=== PATIENT | female | born 1975 | race Caucasian/White ===

== ENCOUNTER 2017-08-14 21:48 | Emergency (ER) | payer SELFPAY ==
--- NOTE | 2017-08-14 22:26 | EDPHYS ---
Physician Documentation [facility] Name: Darcy Aguilar Age: 42 yrs Sex: Female : 1975 Arrival Date: 08/14/2017 Time: 21:51 Bed 16 Private MD: ED Physician Eugenio Naqvi HPI: 08/14 22:15 This 42 yrs old Female presents to ER via Ambulatory with complaints of Eye jr8 Pain. 22:15 The patient is experiencing redness. Onset: The symptoms/episode began/occurred jr8 acutely, today. Duration: the symptoms are continuous. Aggravated by nothing. Alleviated by nothing. Associated signs and symptoms: Pertinent positives: None. Patient does not utilize any form of vision correction. Severity of symptoms: At their worst the symptoms were mild in the emergency department the symptoms are unchanged. The patient has not experienced similar symptoms in the past. The patient has not recently seen a physician. 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 - Social history:: Smoking status: Patient/guardian denies using tobacco. - Ebola Screening: : No symptoms or risks identified at this time. ROS: 22:15 ENT: Negative for injury, pain, and discharge, Neck: Negative for injury, pain, and jr8 swelling, Cardiovascular: Negative for chest pain, palpitations, and edema, Respiratory: Negative for shortness of breath, cough, wheezing, and pleuritic chest pain, Abdomen/GI: Negative for abdominal pain, nausea, vomiting, diarrhea, and constipation, Back: Negative for injury and pain, MS/Extremity: Negative for injury and deformity, Skin: Negative for injury, rash, and discoloration, Neuro: Negative for headache, weakness, numbness, tingling, and seizure. 22:15 Eyes: Positive for redness. Exam: 22:15 Head/Face: Normocephalic, atraumatic. ENT: Nares patent. No nasal discharge, no jr8 septal abnormalities noted. Tympanic membranes are normal and external auditory canals are clear. Oropharynx with no redness, swelling, or masses, exudates, or evidence of obstruction, uvula midline. Mucous membranes moist. Neck: Trachea midline, no thyromegaly or masses palpated, and no cervical lymphadenopathy. Supple, full range of motion without nuchal rigidity, or vertebral point tenderness. No Meningismus. Cardiovascular: Regular rate and rhythm with a normal S1 and S2. No gallops, murmurs, or rubs. Normal PMI, no JVD. No pulse deficits. Respiratory: Lungs have equal breath sounds bilaterally, clear to auscultation and percussion. No rales, rhonchi or wheezes noted. No increased work of breathing, no retractions or nasal flaring. Abdomen/GI: Soft, non-tender, with normal bowel sounds. No distension or tympany. No guarding or rebound. No evidence of tenderness throughout. Back: No spinal tenderness. No costovertebral tenderness. Full range of motion. Skin: Warm, dry with normal turgor. Normal color with no rashes, no lesions, and no evidence of cellulitis. MS/ Extremity: Pulses equal, no cyanosis. Neurovascular intact. Full, normal range of motion. Neuro: Awake and alert, GCS 15, oriented to person, place, time, and situation. Cranial nerves II-XII grossly intact. Motor strength 5/5 in all extremities. Sensory grossly intact. Cerebellar exam normal. Normal gait. 22:15 Eyes: Periorbital structures: appear normal, Pupils: equal, round, and reactive to light and accomodation, Extraocular movements: intact throughout, Conjunctiva: subconjunctival hemorrhage(s), seen in the right eye, at 1 o'clock, Corneas: are normal, Sclera: no appreciated abnormality, Anterior chamber: normal, Lids and lashes: appear normal, funduscopic exam reveals no obvious abnormalities. Vital Signs: 22:05 BP 138 / 96; Pulse 66; Resp 18; Temp 98.7(O); Pulse Ox 98% on R/A; Weight 81.65 kg; tl2 Height 5 ft. 1 in. (154.94 cm); Pain 0/10; 22:05 Body Mass Index 34.01 (81.65 kg, 154.94 cm) tl2 Visual Acuity: 22:18 ; NA rk2 MDM: 21:58 Patient medically screened. [facility] 22:15 Data reviewed: vital signs, nurses notes, and as a result, I will discharge patient. jr8 Data interpreted: Pulse oximetry: on room air is 98 %. Interpretation: normal. Counseling: I had a detailed discussion with the patient and/or guardian regarding: the historical points, exam findings, and any diagnostic results supporting the discharge/admit diagnosis, the need for outpatient follow up, an opthalmologist, to return to the emergency department if symptoms worsen or persist or if there are any questions or concerns that arise at home. Administered Medications: No medications were administered Disposition: 23:41 Co-signature as Attending Physician, Eugenio Naqvi MD. rn Disposition: 08/14/17 22:25 Discharged to Home. Impression: Subconjunctival Hemorrhage . - Condition is Stable. - Discharge Instructions: Subconjunctival Hemorrhage. - Medication Reconciliation Form, Thank You Letter, Antibiotic Education, Prescription Opioid Use, Work release form form. - Follow up: Private Physician; When: 2 - 3 days; Reason: Recheck today's complaints, Continuance of care, Re-evaluation by your physician. - Problem is new. - Symptoms are unchanged. Signatures: Eugenio Naqvi MD MD rn Roszak, Josh, PA PA jr8 Katie Mireles RN RN tl2 Dilma Ayala RN RN rk2 Corrections: (The following items were deleted from the chart) 22:36 22:25 08/14/2017 22:25 Discharged to Home. Impression: Subconjunctival Hemorrhage . rk2 Condition is Stable. Forms are Medication Reconciliation Form, Thank You Letter, Antibiotic Education, Prescription Opioid Use. Follow up: Private Physician; When: 2 - 3 days; Reason: Recheck today's complaints, Continuance of care, Re-evaluation by your physician. Problem is new. Symptoms are unchanged. jr8
--- NOTE | 2017-08-14 22:26 | ER ---
Nurse's Notes [facility] Name: Darcy Aguilar Age: 42 yrs Sex: Female : 1975 Arrival Date: 08/14/2017 Time: 21:51 Bed 16 Private MD: Diagnosis: Subconjunctival Hemorrhage Presentation: 08/14 22:03 Presenting complaint: Patient states: I woke up this morning with my right eye tl2 bloodshot, but my job sent me over here to get cleared to come back to work. Denies pain or vision problems. Redness noted in right eye. Transition of care: patient was not received from another setting of care. Mechanism of Injury: No Mechanism of Injury. The patient denies any loss of vision. Onset of symptoms was August 14, 2017. Risk Assessment: Do you want to hurt yourself or someone else? Patient reports no desire to harm self or others. Initial Sepsis Screen: Does the patient meet any 2 criteria? No. Patient's initial sepsis screen is negative. Does the patient have a suspected source of infection? No. Patient's initial sepsis screen is negative. Care prior to arrival: None. 22:03 Method Of Arrival: Ambulatory tl2 22:03 Acuity: CED 4 tl2 Triage Assessment: 22:05 General: Appears in no apparent distress. comfortable, Behavior is calm, cooperative, tl2 appropriate for age. Pain: Denies pain. EENT: Sclera/Cornea are reddened in outer aspect of conjuctiva of right eye and inner aspect of conjuctiva of right eye. 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 - Social history:: Smoking status: Patient/guardian denies using tobacco. - Ebola Screening: : No symptoms or risks identified at this time. Screenin:05 Abuse screen: Denies threats or abuse. Nutritional screening: No deficits noted. tl2 Tuberculosis screening: No symptoms or risk factors identified. Fall Risk None identified. Assessment: 22:06 EENT: Eyes redness noted in sclera. tl2 22:18 General: Appears in no apparent distress. well groomed, well developed, well nourished, rk2 Behavior is calm, cooperative. 22:18 Neuro: Level of Consciousness is alert, obeys commands, Oriented to person, place, rk2 time, situation. Respiratory: Airway is patent Respiratory effort is even, unlabored, Respiratory pattern is regular, symmetrical. EENT: Eyes Red noted in sclera. Derm: Skin is pink, warm \T\ dry. Vital Signs: 22:05 BP 138 / 96; Pulse 66; Resp 18; Temp 98.7(O); Pulse Ox 98% on R/A; Weight 81.65 kg; tl2 Height 5 ft. 1 in. (154.94 cm); Pain 0/10; 22:05 Body Mass Index 34.01 (81.65 kg, 154.94 cm) tl2 Visual Acuity: 22:18 ; NA rk2 ED Course: 21:51 Patient arrived in ED. ds1 21:58 Sundar Raymundo PA is PHCP. jr8 21:58 Eugenio Naqvi MD is Attending Physician. jr8 22:04 Triage completed. tl2 22:05 Arm band placed on right wrist. tl2 22:05 Patient has correct armband on for positive identification. Bed in low position. Call tl2 light in reach. Side rails up X 1. 22:24 Dilma Ayala, DEON is Primary Nurse. rk2 22:35 No provider procedures requiring assistance completed. rk2 22:35 Patient did not have IV access during this emergency room visit. rk2 Administered Medications: No medications were administered Outcome: 22:25 Discharge ordered by . jr8 22:36 Discharged to home ambulatory. rk2 22:36 Condition: good 22:36 Discharge instructions given to patient. 22:36 Patient left the ED. rk2 Signatures: Maria Teresa An ds1 Sundar Raymundo PA PA jr8 Katie Mireles RN RN tl2 Dilma Ayala RN RN rk2
[2017-08-14 22:45] VITALS: BP 138/96; TEMP 98.7; O2SAT 98
== END 2017-08-14 22:36 | disposition home or self-care (01) ==
LOC: ER 21:48
DX: H11.31 Conjunctival hemorrhage, right eye (principal)
CPT/HCPCS: 99282

== ENCOUNTER 2019-01-31 04:53 | Emergency (ER) | payer OTHER, SELFPAY ==
--- OUTSIDE RECORDS SUMMARY | 2019-01-31 04:56 | XMS REPORT ---
:1975 [facility] Address [address] [place] [address] Dr. Gardner [address] [place] [id number] Care Team Providers Name Role Phone Unavailable Unavailable Unavailable Problems This patient has no known problems. Allergies, Adverse Reactions, Alerts This patient has no known allergies or adverse reactions. Medications This patient has no known medications.
[2019-01-31] MEDS ORDERED: ONDANSETRON 4 MG/2 ML VIAL ONE (06:33)
[2019-01-31] MEDS ORDERED: MORPHINE 4 MG/ML SYR ONE (06:33)
[2019-01-31] MEDS ORDERED: NA CHLORIDE 0.9% 1,000 ML ONE (06:33)
[2019-01-31 06:37] LABS: Albumin 3.3 g/dL (3.4-5.0); Bilirubin Direct 0.1 mg/dL (0-0.2); Bilirubin Total 0.4 mg/dL (0.2-1.0); Potassium 4.1 mmol/L (3.5-5.1); Protein, Total 6.9 g/dL (6.4-8.2)
[2019-01-31 06:54] LABS: Absolute Lymphocytes (CBC) 1.7 K/uL (0.7-4.9); Basophils % 0.3 % (0-1.3); Hematocrit 36.9 % (36.0-45.0); Lymphocytes % 18.4 % (15.3-44.8); MPV 8.5 fL (7.6-11.3); RBC Red Blood Cell Count 4.06 M/uL (3.86-4.86)
[2019-01-31 07:08] LABS: Urine Bacteria 20-50 /HPF (<20); Urine Culture Reflex Order REFLEXED
--- NOTE | 2019-01-31 08:11 | RAD REPORT ---
EXAM DESCRIPTION: CTAbdomen Pelvis W Contrast - 01/31/2019 7:00 am CLINICAL HISTORY: Abdominal pain. ABD PAIN COMPARISON: CTSTONE PROTOCOL dated 11/16/2013; CT ABD PELVIS W CONTRAST dated 11/11/2010 TECHNIQUE: Biphasic CT imaging of the abdomen and pelvis was performed with 100 ml non-ionic IV cont rast. All CT scans are performed using dose optimization technique as appropriate and may include automated exposure control or mA/KV adjustment according to patient size. FINDINGS: The lung bases are clear. Cholecystectomy clips. The liver demonstrates an 11 mm lesion in the medial right lobe of the liver inferiorly, likely benig n but incompletely assessed. Spleen, pancreas, adrenal glands and right kidney are within normal limi ts. Left kidney demonstrates mild perinephric fat stranding with enhancement of the left-sided uroepi thelium. No bowel obstruction, free air, free fluid or abscess. Sigmoid diverticulosis coli without diverticul itis. The appendix is normal. No evidence of significant lymphadenopathy. No suspicious bony findings. Large pelvic mass compatible with an enlarged leiomyomatous uterus measu ring 12 x 10 cm. IMPRESSION: Evidence of ascending left-sided urinary tract infection is seen. Suggest correlation wi urinalysis. Significantly enlarged leiomyomatous uterus in the pelvis.
--- NOTE | 2019-01-31 08:27 | ER ---
Nurse's Notes [facility] Name: Darcy Aguilar Age: 43 yrs Sex: Female : 1975 Arrival Date: 01/31/2019 Time: 04:59 Bed 14 Private MD: Diagnosis: Urinary tract infection, site not specified Presentation: 01/31 05:11 Presenting complaint: Patient states: Pt reports nausea and abdominal pain that started ea four days ago. Pt reports she has been having nausea, feeling bloated and has been unable to eat. Pt reports she has been feeling pain with urination. Transition of care: patient was not received from another setting of care. Onset of symptoms was January 31, 2019. Risk Assessment: Do you want to hurt yourself or someone else? Patient reports no desire to harm self or others. Initial Sepsis Screen: Does the patient meet any 2 criteria? No. Patient's initial sepsis screen is negative. Does the patient have a suspected source of infection? No. Patient's initial sepsis screen is negative. Care prior to arrival: None. 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 - Social history:: Smoking status: Patient/guardian denies using tobacco. - Ebola Screening: : No symptoms or risks identified at this time. Screenin:17 Abuse screen: Denies threats or abuse. Nutritional screening: No deficits noted. ea Tuberculosis screening: No symptoms or risk factors identified. Fall Risk None identified. Assessment: 05:25 General: Appears in no apparent distress. Behavior is calm, cooperative, appropriate ea for age. Pain: Complains of pain in abdomen Quality of pain is described as "bloated". Neuro: Level of Consciousness is awake, alert, obeys commands, Oriented to person, place, time, situation. Cardiovascular: Patient's skin is warm and dry. Respiratory: Airway is patent Respiratory effort is even, unlabored, Respiratory pattern is regular, symmetrical. GI: Bowel sounds present X 4 quads. Abd is soft and non tender X 4 quads. Derm: Skin is pink, warm \\T\\ dry. 06:17 Reassessment: Patient and/or family updated on plan of care and expected duration. Pain ea level reassessed. Patient is alert, oriented x 3, equal unlabored respirations, skin warm/dry/pink. 07:00 Reassessment: Pt. is in radiology. rb1 07:30 General: Appears in no apparent distress. comfortable, Behavior is calm, cooperative. rb1 Pain: Complains of pain in abdomen Pain currently is 4 out of 10 on a pain scale. Neuro: Level of Consciousness is awake, alert, obeys commands, Oriented to person, place, time, situation. Cardiovascular: Capillary refill < 3 seconds is brisk in bilateral fingers. Respiratory: Airway is patent Respiratory effort is even, unlabored, Respiratory pattern is regular, symmetrical. GI: Bowel sounds present X 4 quads. : No signs and/or symptoms were reported regarding the genitourinary system. Derm: Skin is pink, warm \\T\\ dry. 08:30 Reassessment: Patient appears in no apparent distress at this time. No changes from rb1 previously documented assessment. 08:46 Reassessment: Discharge pending due to Medication administration. rb1 Vital Signs: 05:10 BP 138 / 73; Pulse 81; Resp 18; Temp 98.3; Pulse Ox 98% on R/A; Weight 86.18 kg; Height ea 5 ft. 1 in. (154.94 cm); 07:30 BP 121 / 73; Pulse 68; Resp 18; Pulse Ox 96% on R/A; Pain 4/10; rb1 08:30 BP 118 / 69; Pulse 66; Resp 17; Temp 98.1(O); Pulse Ox 96% on R/A; Pain 4/10; rb1 05:10 Body Mass Index 35.90 (86.18 kg, 154.94 cm) ea ED Course: 04:59 Patient arrived in ED. ds1 05:17 Triage completed. ea 05:17 Arm band placed on right wrist. Patient placed in an exam room, on a stretcher, on ea pulse oximetry. 05:23 Patient has correct armband on for positive identification. Bed in low position. Call ea light in reach. Side rails up X2. 05:51 Kristin Dunbar, RN is Primary Nurse. ea 06:05 Darron Chang NP is PHCP. pm1 06:05 Anival Jasmine MD is Attending Physician. pm1 06:30 Inserted saline lock: 22 gauge in right forearm, using aseptic technique. Blood oe collected. 07:01 CT Abd/Pelvis - IV Contrast Only In Process Unspecified. EDMS 08:59 No provider procedures requiring assistance completed. IV discontinued, intact, rb1 bleeding controlled, No redness/swelling at site. Pressure dressing applied. Administered Medications: 06:39 Drug: NS 0.9% 1000 ml Route: IV; Rate: 1000 ml; Site: right forearm; jd3 06:40 Drug: morphine 4 mg Route: IVP; Site: right forearm; jd3 07:30 Follow up: Response: No adverse reaction; Pain is decreased rb1 06:40 Drug: Zofran 4 mg Route: IVP; Site: right forearm; jd3 07:30 Follow up: Response: No adverse reaction rb1 08:42 Drug: Rocephin 1 grams Route: IV; Rate: calculated rate; Site: right forearm; rb1 09:01 Follow up: Response: No adverse reaction; IV Status: Completed infusion rb1 Outcome: 08:26 Discharge ordered by MD. pm1 08:59 Discharged to home ambulatory. rb1 08:59 Condition: stable 08:59 Discharge instructions given to patient, Instructed on discharge instructions, follow up and referral plans. medication usage, Demonstrated understanding of instructions, follow-up care, medications, Prescriptions given X 2. 09:01 Patient left the ED. rb1 Addendum: 02/03/2019 07:49 Addendum: Culture Results: Positive urine culture. No further action required. Bacteria i w sensitive to prescribed antibiotic. Signatures: Dispatcher [employer] [facility]ve Maria Teresa ds Iliana Michaels RN RN iw Barber, Rebecca, RN RN rb1 Darron Chang NP [employer] pm1 Arturo Tamayo Elena, RN RN ea Davies, Jonathon, RN RN jd3
--- NOTE | 2019-01-31 08:27 | EDPHYS ---
Physician Documentation [facility] Srinivasan Name: Darcy Aguilar Age: 43 yrs Sex: Female : 1975 Arrival Date: 01/31/2019 Time: 04:59 Bed 14 Private MD: ED Physician Anival Jasmine HPI: 01/31 07:16 This 43 yrs old Female presents to ER via Ambulatory with complaints of pm1 Abdominal Pain, Nausea. 07:16 The patient presents with abdominal pain in the upper abdomen. Onset: The pm1 symptoms/episode began/occurred 4 day(s) ago. The symptoms do not radiate. Associated signs and symptoms: Pertinent positives: nausea, burning with urination for the past 3-4 days. Not burning with each urination, Pertinent negatives: chest pain, diarrhea, fever, shortness of breath, vomiting. The symptoms are described as crampy and bloating sensation to upper abdomen. Pain initially started in the left flank area. Modifying factors: The symptoms are alleviated by nothing, the symptoms are aggravated by nothing. Severity of pain: in the emergency department the pain is unchanged. The patient has not recently seen a physician. 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 - Social history:: Smoking status: Patient/guardian denies using tobacco. - Ebola Screening: : No symptoms or risks identified at this time. ROS: 07:16 Constitutional: Negative for fever, chills, and weight loss, Eyes: Negative for injury, pm1 pain, redness, and discharge, ENT: Negative for injury, pain, and discharge, Neck: Negative for injury, pain, and swelling, Cardiovascular: Negative for chest pain, palpitations, and edema, Respiratory: Negative for shortness of breath, cough, wheezing, and pleuritic chest pain. 07:16 MS/Extremity: Negative for injury and deformity, Skin: Negative for injury, rash, and discoloration, Neuro: Negative for headache, weakness, numbness, tingling, and seizure. 07:16 Abdomen/GI: Positive for abdominal pain, nausea, Negative for vomiting, diarrhea, constipation. 07:16 Back: Positive for flank pain, on the left, Negative for decreased range of motion. 07:16 : Positive for flank pain, burning with urination. Exam: 07:16 Constitutional: This is a well developed, well nourished patient who is awake, alert, pm1 and in no acute distress. Head/Face: Normocephalic, atraumatic. Neck: Trachea midline, no thyromegaly or masses palpated, and no cervical lymphadenopathy. Supple, full range of motion without nuchal rigidity, or vertebral point tenderness. No Meningismus. Chest/axilla: Normal chest wall appearance and motion. Nontender with no deformity. No lesions are appreciated. Cardiovascular: Regular rate and rhythm with a normal S1 and S2. No gallops, murmurs, or rubs. Normal PMI, no JVD. No pulse deficits. Respiratory: Lungs have equal breath sounds bilaterally, clear to auscultation and percussion. No rales, rhonchi or wheezes noted. No increased work of breathing, no retractions or nasal flaring. Abdomen/GI: Soft, non-tender, with normal bowel sounds. No distension or tympany. No guarding or rebound. No evidence of tenderness throughout. Skin: Warm, dry with normal turgor. Normal color with no rashes, no lesions, and no evidence of cellulitis. MS/ Extremity: Pulses equal, no cyanosis. Neurovascular intact. Full, normal range of motion. 07:16 Back: pain, that is mild, of the left low back, normal spinal alignment noted, vertebral tenderness, is not appreciated. 07:16 Neuro: Orientation: is normal, Motor: is normal, moves all fours. Vital Signs: 05:10 BP 138 / 73; Pulse 81; Resp 18; Temp 98.3; Pulse Ox 98% on R/A; Weight 86.18 kg; Height ea 5 ft. 1 in. (154.94 cm); 07:30 BP 121 / 73; Pulse 68; Resp 18; Pulse Ox 96% on R/A; Pain 4/10; rb1 08:30 BP 118 / 69; Pulse 66; Resp 17; Temp 98.1(O); Pulse Ox 96% on R/A; Pain 4/10; rb1 05:10 Body Mass Index 35.90 (86.18 kg, 154.94 cm) ea MDM: 06:14 Patient medically screened. pm1 07:21 Data reviewed: vital signs. Data interpreted: Pulse oximetry: on room air is 98 %. pm1 Interpretation: normal. 08:25 Counseling: I had a detailed discussion with the patient and/or guardian regarding: the pm1 historical points, exam findings, and any diagnostic results supporting the discharge/admit diagnosis, lab results, radiology results, the need for outpatient follow up, to return to the emergency department if symptoms worsen or persist or if there are any questions or concerns that arise at home. 08:25 ED course: Patient has been taking Azo OTC since onset of symptoms. Likely cause to why pm1 she is occasionally has dysuria over the onset of symptoms. 01/31 05:35 Order name: Basic Metabolic Panel; Complete Time: 07:07 tw4 01/31 05:35 Order name: CBC with Diff; Complete Time: 07:07 tw4 01/31 05:35 Order name: Creatinine for Radiology; Complete Time: 07:07 tw4 01/31 05:35 Order name: Hepatic Function; Complete Time: 07:07 tw4 01/31 05:35 Order name: Lipase; Complete Time: 07:07 tw4 01/31 06:15 Order name: Urine Microscopic Only; Complete Time: 07:13 pm1 01/31 06:21 Order name: CT Abd/Pelvis - IV Contrast Only; Complete Time: 08:20 pm1 01/31 06:57 Order name: Urine Dipstick--Ancillary (enter results) [facility] 01/31 06:57 Order name: Urine --Ancillary (enter results) [facility] 01/31 07:10 Order name: Urine Culture [facility] 01/31 05:35 Order name: IV Saline Lock; Complete Time: 06:40 tw4 01/31 05:35 Order name: Labs collected and sent; Complete Time: 06:40 tw4 01/31 05:35 Order name: Urine Dipstick-Ancillary (obtain specimen); Complete Time: 07:03 tw4 01/31 05:35 Order name: Urine Test (obtain specimen); Complete Time: 07:02 tw4 Administered Medications: 06:39 Drug: NS 0.9% 1000 ml Route: IV; Rate: 1000 ml; Site: right forearm; jd3 06:40 Drug: morphine 4 mg Route: IVP; Site: right forearm; jd3 07:30 Follow up: Response: No adverse reaction; Pain is decreased rb1 06:40 Drug: Zofran 4 mg Route: IVP; Site: right forearm; jd3 07:30 Follow up: Response: No adverse reaction rb1 08:42 Drug: Rocephin 1 grams Route: IV; Rate: calculated rate; Site: right forearm; rb1 09:01 Follow up: Response: No adverse reaction; IV Status: Completed infusion rb1 Disposition: 01/31/19 08:26 Discharged to Home. Impression: Urinary tract infection, site not specified. - Condition is Stable. - Discharge Instructions: Urinary Tract Infection, Adult. - Prescriptions for Bactrim DS 800- 160 mg Oral Tablet - take 1 tablet by ORAL route every 12 hours for 10 days; 20 tablet. Zofran 4 mg Oral Tablet - take 1 tablet by ORAL route every 8 hours As needed; 20 tablet. - Work release form, Medication Reconciliation Form, Thank You Letter, Antibiotic Education, Prescription Opioid Use form. - Follow up: Emergency Department; When: As needed; Reason: Worsening of condition. Follow up: Private Physician; When: 2 - 3 days; Reason: Recheck today's complaints, Continuance of care, Re-evaluation by your physician. - Problem is new. - Symptoms have improved. Addendum: 02/02/2019 21:52 Co-signature as Attending Physician, Anival Jasmine MD I agree with the assessment and t w4 plan of care. Signatures: Dispatcher [employer] EDDC Alexa Andino, RN RN rb1 Darron Chang, HERBARIUM CURATOR HERBARIUM CURATOR pm1 Kristin Dunbar RN RN ea Davies, Jonathon, RN RN jd3 Wadley, Terrence, MD MD tw4 Corrections: (The following items were deleted from the chart) 01/31 09:01 08:26 01/31/2019 08:26 Discharged to Home. Impression: Urinary tract infection, site rb1 not specified. Condition is Stable. Forms are Medication Reconciliation Form, Thank You Letter, Antibiotic Education, Prescription Opioid Use. Follow up: Emergency Department; When: As needed; Reason: Worsening of condition. Follow up: Private Physician; When: 2 - 3 days; Reason: Recheck today's complaints, Continuance of care, Re-evaluation by your physician. Problem is new. Symptoms have improved. pm1
[2019-01-31] MEDS ORDERED: CEFTRIAXONE/SWI 1gm 1 GM/10 ML SYR ONE (08:42)
[2019-01-31 09:40] LABS: Urine Blood 2+ (NEG); Urine Glucose NEGATIVE (NEG); Urine Protein 1+ (NEG); Urine pH 5.5 (5.0-7.0)
[2019-01-31 13:44] VITALS: BP 118/69; TEMP 98.1; O2SAT 96
== END 2019-01-31 09:01 | disposition home or self-care (01) ==
LOC: ER 04:53
DX: N39.0 Urinary tract infection, site not specified (principal)
CPT/HCPCS: 96365; 87088; 85025; 87086; 80048; 36415; 81025; 80076; 87077; 87186; 83690; 74177; 96375; 99284; Q9967; J0696; J7030; J2405; 81003; 81015

== ENCOUNTER 2019-02-27 18:18 | Emergency (ER) | payer OTHER ==
--- OUTSIDE RECORDS SUMMARY | 2019-02-27 18:20 | XMS REPORT ---
:1975 Author Organization [facility] Address [address] [place] [address] Dr. Gardner [address] [place] [id number] Care Team Providers Name Role Phone Unavailable Unavailable Unavailable Problems This patient has no known problems. Allergies, Adverse Reactions, Alerts This patient has no known allergies or adverse reactions. Medications This patient has no known medications.
[2019-02-27] MEDS ORDERED: ALBUTEROL 2.5 MG/3 ML NEB SOL ONE (18:55)
[2019-02-27] MEDS ORDERED: dexAMETHasone 10 MG/ML VIAL ONE (18:55)
[2019-02-27] MEDS ORDERED: IPRATROPIUM BROM 0.5MG/2.5ML ONE (18:56)
[2019-02-27] MEDS ORDERED: IBUPROFEN 200 MG TAB PO ONE (18:56)
[2019-02-27] MEDS ORDERED: IBUPROFEN 400 MG TAB ONE (18:56)
--- NOTE | 2019-02-27 19:36 | EDPHYS ---
Physician Documentation [facility] Name: Darcy Aguilar Age: 43 yrs Sex: Female : 1975 Arrival Date: 02/27/2019 Time: 18:24 Bed 28 Private MD: ED Physician Tony Holguin HPI: 02/27 18:48 This 43 yrs old Female presents to ER via Ambulatory with complaints of la1 Cough, Wheezing > 1 Year. 18:48 The patient or guardian reports cough. Onset: The symptoms/episode began/occurred 3 la1 day(s) ago. Severity of symptoms: At their worst the symptoms were mild. Modifying factors: The symptoms are alleviated by nothing, the symptoms are aggravated by nothing. Associated signs and symptoms: Pertinent negatives: chest pain, fever, nausea, sore throat, vomiting. The patient has not experienced similar symptoms in the past. Pt reports three day history of dry cough with wheezing, denies ill contacts, no fevers. 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 - Social history:: Smoking status: Patient/guardian denies using tobacco. - Ebola Screening: : No symptoms or risks identified at this time. ROS: 18:49 Constitutional: Negative for fever, chills, and weight loss, Eyes: Negative for injury, la1 pain, redness, and discharge, ENT: Negative for injury, pain, and discharge, Neck: Negative for injury, pain, and swelling, Cardiovascular: Negative for chest pain, palpitations, and edema. 18:49 Abdomen/GI: Negative for abdominal pain, nausea, vomiting, diarrhea, and constipation, Back: Negative for injury and pain, MS/Extremity: Negative for injury and deformity. 18:49 Respiratory: Positive for cough, wheezing. Exam: 18:49 Constitutional: This is a well developed, well nourished patient who is awake, alert, la1 and in no acute distress. Head/Face: Normocephalic, atraumatic. Eyes: Pupils equal round and reactive to light, extra-ocular motions intact. Periorbital areas with no swelling, redness, or edema. ENT: Mucous membranes moist. Chest/axilla: Normal chest wall appearance and motion. Nontender with no deformity. No lesions are appreciated. Cardiovascular: Regular rate and rhythm with a normal S1 and S2. No gallops, murmurs, or rubs. Normal PMI, no JVD. No pulse deficits. Respiratory: Lungs have equal breath sounds bilaterally, clear to auscultation and percussion. Abdomen/GI: Soft, non-tender, with normal bowel sounds. No distension or tympany. No guarding or rebound. No evidence of tenderness throughout. Back: No spinal tenderness. No costovertebral tenderness. Full range of motion. Vital Signs: 18:27 BP 132 / 83; Pulse 73; Resp 19 S; Temp 98.2(O); Pulse Ox 99% on R/A; Weight 88.45 kg jl7 (R); Height 5 ft. 0 in. (152.40 cm) (R); Pain 7/10; 19:30 BP 136 / 81; Pulse 77; Resp 16; Pulse Ox 99% on R/A; rv 18:27 Body Mass Index 38.08 (88.45 kg, 152.40 cm) jl7 MDM: 18:31 Patient medically screened. la1 19:37 Data reviewed: vital signs, nurses notes, I have discussed the patient's la1 presentation/case with the attending Emergency Department Physician; and as a result, I will discharge patient. Data interpreted: Pulse oximetry: on room air is 99 %. Interpretation: normal. Counseling: I had a detailed discussion with the patient and/or guardian regarding: the historical points, exam findings, and any diagnostic results supporting the discharge/admit diagnosis, the need for outpatient follow up, a family practitioner, to return to the emergency department if symptoms worsen or persist or if there are any questions or concerns that arise at home. Special discussion: I discussed with the patient/guardian that the patient's current presentation does not indicate dosing of antibiotics. They should follow-up with their primary care provider and return if the symptoms persist or progress. Administered Medications: 18:55 Drug: Decadron 10 mg Route: PO; rv 19:35 Follow up: Response: No adverse reaction rv 18:55 Drug: Motrin 600 mg Route: PO; rv 19:35 Follow up: Response: No adverse reaction rv 19:00 Drug: Albuterol - atroVENT (3:1) (2.5 mg - 0.5 mg) 3 ml Route: Nebulizer; rv 19:35 Follow up: Response: Marked relief of symptoms rv Disposition: 20:25 Co-signature as Attending Physician, Tony Holguin MD. pkl Disposition: 02/27/19 19:36 Discharged to Home. Impression: Bronchitis, not specified as acute or chronic. - Condition is Stable. - Discharge Instructions: Acute Bronchitis, Adult, Upper Respiratory Infection, Infant. - Prescriptions for Albuterol Sulfate 90 mcg/actuation - inhale 1-2 puff by INHALATION route every 4-6 hours; 1 Inhaler. - Medication Reconciliation Form, Thank You Letter form. - Follow up: Private Physician; When: 2 - 3 days; Reason: Recheck today's complaints, Re-evaluation by your physician. - Problem is new. - Symptoms have improved. Signatures: Tony Holguin MD MD pk Hugo Howell FNP-Radha [facility] Mark Lawler, RN RN jl7 Domingo Mariscal, RN RN rv Corrections: (The following items were deleted from the chart) 19:44 19:36 02/27/2019 19:36 Discharged to Home. Impression: Bronchitis, not specified as rv acute or chronic. Condition is Stable. Forms are Medication Reconciliation Form, Thank You Letter, Antibiotic Education, Prescription Opioid Use. Follow up: Private Physician; When: 2 - 3 days; Reason: Recheck today's complaints, Re-evaluation by your physician. Problem is new. Symptoms have improved. la1
--- NOTE | 2019-02-27 19:36 | ER ---
Nurse's Notes [facility] Srinivasan Name: Darcy Aguilar Age: 43 yrs Sex: Female : 1975 Arrival Date: 02/27/2019 Time: 18:24 Bed 28 Private MD: Diagnosis: Bronchitis, not specified as acute or chronic Presentation: 02/27 18:25 Presenting complaint: Patient states: Cough and wheezing x 3 days, denies feeling bad jl7 but can't get rid of the cough and has my chest hurting. Transition of care: patient was not received from another setting of care. Onset of symptoms was February 25, 2019. Risk Assessment: Do you want to hurt yourself or someone else? Patient reports no desire to harm self or others. Initial Sepsis Screen: Does the patient meet any 2 criteria? No. Patient's initial sepsis screen is negative. Does the patient have a suspected source of infection? No. Patient's initial sepsis screen is negative. Care prior to arrival: None. 18:25 Method Of Arrival: Ambulatory [facility] 18:25 Acuity: CED 4 jl7 Triage Assessment: 19:05 General: Appears in no apparent distress. comfortable, Behavior is calm, cooperative. rv Respiratory: Reports shortness of breath Onset: The symptoms/episode began/occurred gradually, the patient has mild shortness of breath. 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 - Social history:: Smoking status: Patient/guardian denies using tobacco. - Ebola Screening: : No symptoms or risks identified at this time. Screenin:05 Abuse screen: Denies threats or abuse. Denies injuries from another. Nutritional rv screening: No deficits noted. Tuberculosis screening: No symptoms or risk factors identified. Fall Risk None identified. Assessment: 19:04 General: Appears in no apparent distress. comfortable, Behavior is calm, cooperative. rv Pain: Denies pain. Neuro: Level of Consciousness is awake, alert, obeys commands, Oriented to person, place, time, situation. Cardiovascular: Rhythm is regular. Respiratory: Airway is patent Respiratory effort is even, Respiratory pattern is Breath sounds are clear bilaterally. GI: No signs and/or symptoms were reported involving the gastrointestinal system. : No signs and/or symptoms were reported regarding the genitourinary system. EENT: No signs and/or symptoms were reported regarding the EENT system. Derm: Skin is intact. Musculoskeletal: No signs and/or symptoms reported regarding the musculoskeletal system. Vital Signs: 18:27 BP 132 / 83; Pulse 73; Resp 19 S; Temp 98.2(O); Pulse Ox 99% on R/A; Weight 88.45 kg jl7 (R); Height 5 ft. 0 in. (152.40 cm) (R); Pain 7/10; 19:30 BP 136 / 81; Pulse 77; Resp 16; Pulse Ox 99% on R/A; rv 18:27 Body Mass Index 38.08 (88.45 kg, 152.40 cm) jl7 ED Course: 18:24 Patient arrived in ED. as 18:26 Triage completed. jl7 18:27 Arm band placed on right wrist. Patient placed in an exam room, on a stretcher. jl7 18:30 Domingo Mariscal RN is Primary Nurse. rv 18:31 Hugo Howell FNP-C is PHCP. la1 18:31 Tony Holguin MD is Attending Physician. la1 19:05 Patient has correct armband on for positive identification. Bed in low position. Call rv light in reach. Side rails up X 1. Pulse ox on. NIBP on. 19:38 No provider procedures requiring assistance completed. Patient did not have IV access rv during this emergency room visit. Administered Medications: 18:55 Drug: Decadron 10 mg Route: PO; rv 19:35 Follow up: Response: No adverse reaction rv 18:55 Drug: Motrin 600 mg Route: PO; rv 19:35 Follow up: Response: No adverse reaction rv 19:00 Drug: Albuterol - atroVENT (3:1) (2.5 mg - 0.5 mg) 3 ml Route: Nebulizer; rv 19:35 Follow up: Response: Marked relief of symptoms rv Outcome: 19:36 Discharge ordered by . la1 19:38 Discharged to home ambulatory. rv 19:38 Condition: good 19:38 Discharge instructions given to patient, Instructed on discharge instructions, follow up and referral plans. medication usage, Demonstrated understanding of instructions, follow-up care, medications. 19:39 Prescriptions given X 1. rv 19:44 Patient left the ED. rv Signatures: Adela Saucedo Lee, SUPERVISOR ALTERATION WORKROOM-C SUPERVISOR ALTERATION WORKROOM-Cla1 Mark Lawler, RN RN jl7 Domingo Mariscal RN RN rv
[2019-02-27 22:54] VITALS: TEMP 98.2; O2SAT 99
[2019-02-27 23:06] VITALS: BP 136/81
== END 2019-02-27 19:44 | disposition home or self-care (01) ==
LOC: ER 18:18
DX: J40 Bronchitis, not specified as acute or chronic (principal)
CPT/HCPCS: 94640; 99284; J1100

== ENCOUNTER 2019-03-04 10:19 | Emergency (ER) | payer OTHER ==
--- NOTE | 2019-03-04 10:31 | ER ---
Nurse's Notes [facility] Name: Darcy Aguilar Age: 43 yrs Sex: Female : 1975 Arrival Date: 03/04/2019 Time: 10:20 Bed 17 Private MD: Diagnosis: Cutaneous abscess of abdominal wall Presentation: 03/04 10:27 Presenting complaint: Abscess on abdomen x 3 days. Transition of care: patient was not hb received from another setting of care. Onset of symptoms was March 02, 2019. Risk Assessment: Do you want to hurt yourself or someone else? Patient reports no desire to harm self or others. Initial Sepsis Screen: Does the patient meet any 2 criteria? No. Patient's initial sepsis screen is negative. Does the patient have a suspected source of infection? No. Patient's initial sepsis screen is negative. Care prior to arrival: None. 10:27 Method Of Arrival: Ambulatory hb 10:27 Acuity: CED 4 hb Triage Assessment: 10:30 General: Appears in no apparent distress. comfortable, Behavior is cooperative, bp appropriate for age, anxious. Pain: Complains of pain in suprapubic area. EENT: No deficits noted. Neuro: No deficits noted. Cardiovascular: No deficits noted. Respiratory: No deficits noted. GI: No signs and/or symptoms were reported involving the gastrointestinal system. : No signs and/or symptoms were reported regarding the genitourinary system. Derm: Abscess located on suprapubic area. Musculoskeletal: No deficits noted. Historical: - Allergies: 10:28 No Known Allergies; hb - Home Meds: 10:28 None [Active]; hb - PMHx: 10:28 None; hb - PSHx: 10:28 ; Cholecystectomy; hb - Immunization history:: Adult Immunizations up to date. - Social history:: Smoking status: Patient/guardian denies using tobacco. - Ebola Screening: : No symptoms or risks identified at this time. Screenin:28 Abuse screen: Denies threats or abuse. Denies injuries from another. Nutritional hb screening: No deficits noted. Tuberculosis screening: No symptoms or risk factors identified. Fall Risk None identified. Assessment: 10:30 General: SEE TRIAGE NOTE. bp 10:42 Reassessment: PT D/C HOME AMBULATORY, DX WITH CUTANEOUS ABSCESS. bp Vital Signs: 10:27 BP 123 / 82; Pulse 77; Resp 16; Temp 98.2; Pulse Ox 100% ; Weight 88.45 kg; Height 5 hb ft. (152.40 cm); Pain 4/10; 10:27 Body Mass Index 38.08 (88.45 kg, 152.40 cm) hb ED Course: 10:20 Patient arrived in ED. as 10:23 Cynthia Miller FNP-C is [facility]. kb 10:23 Vern Hurd MD is Attending Physician. kb 10:27 Triage completed. hb 10:27 Arm band placed on. hb 10:40 Demetrius Silva, RN is Primary Nurse. bp 10:41 Patient has correct armband on for positive identification. Bed in low position. Call bp light in reach. Side rails up X2. 10:42 No provider procedures requiring assistance completed. Patient did not have IV access bp during this emergency room visit. Administered Medications: 10:40 Drug: Bactrim (160 mg-800 mg (DS) 1 tablet Route: PO; bp 10:49 Follow up: Response: No adverse reaction bp Outcome: 10:29 Discharge ordered by . kb 10:42 Discharged to home ambulatory. bp 10:42 Condition: stable 10:42 Discharge instructions given to patient, Instructed on discharge instructions, follow up and referral plans. medication usage, Demonstrated understanding of instructions, follow-up care, medications, Prescriptions given X 1. 10:49 Patient left the ED. bp Signatures: Cynthia Miller FNP-C FNP-Ckb Martinez, Amelia as Baxter, Heather, RN RN Demetrius Silva, RN RN bp
--- NOTE | 2019-03-04 10:31 | EDPHYS ---
Physician Documentation [facility] Name: Darcy Aguilar Age: 43 yrs Sex: Female : 1975 Arrival Date: 03/04/2019 Time: 10:20 Bed 17 Private MD: ED Physician Vern Hurd HPI: 03/04 10:28 This 43 yrs old Female presents to ER via Ambulatory with complaints of kb Insect Bite. 10:28 The patient presents with an abscess of the suprapubic area. Description: erythematous, kb swollen, warm. Onset: The symptoms/episode began/occurred 3 day(s) ago. Possible cause(s): unknown. Associated signs and symptoms: Pertinent positives: erythema, swelling. Modifying factors: the symptoms are alleviated by nothing, the symptoms are aggravated by pressure, touching. Severity of symptoms: At their worst the symptoms were mild, in the emergency department the symptoms are unchanged. The patient has not experienced similar symptoms in the past. The patient has not recently seen a physician. Historical: - Allergies: 10:28 No Known Allergies; hb - Home Meds: 10:28 None [Active]; hb - PMHx: 10:28 None; hb - PSHx: 10:28 ; Cholecystectomy; hb - Immunization history:: Adult Immunizations up to date. - Social history:: Smoking status: Patient/guardian denies using tobacco. - Ebola Screening: : No symptoms or risks identified at this time. ROS: 10:27 Constitutional: Negative for fever, chills, and weight loss, ENT: Negative for injury, kb pain, and discharge, Neck: Negative for injury, pain, and swelling, Cardiovascular: Negative for chest pain, palpitations, and edema, Respiratory: Negative for shortness of breath, cough, wheezing, and pleuritic chest pain, Abdomen/GI: Negative for abdominal pain, nausea, vomiting, diarrhea, and constipation, Back: Negative for injury and pain, MS/Extremity: Negative for injury and deformity, Neuro: Negative for headache, weakness, numbness, tingling, and seizure. 10:27 Skin: Positive for abscess, erythema, swelling, of the suprapubic area. Exam: 10:27 Constitutional: This is a well developed, well nourished patient who is awake, alert, kb and in no acute distress. Head/Face: Normocephalic, atraumatic. ENT: Nares patent. No nasal discharge, no septal abnormalities noted. Tympanic membranes are normal and external auditory canals are clear. Oropharynx with no redness, swelling, or masses, exudates, or evidence of obstruction, uvula midline. Mucous membranes moist. Neck: Trachea midline, no thyromegaly or masses palpated, and no cervical lymphadenopathy. Supple, full range of motion without nuchal rigidity, or vertebral point tenderness. No Meningismus. Chest/axilla: Normal chest wall appearance and motion. Nontender with no deformity. No lesions are appreciated. Cardiovascular: Regular rate and rhythm with a normal S1 and S2. No gallops, murmurs, or rubs. Normal PMI, no JVD. No pulse deficits. Respiratory: Lungs have equal breath sounds bilaterally, clear to auscultation and percussion. No rales, rhonchi or wheezes noted. No increased work of breathing, no retractions or nasal flaring. Abdomen/GI: Soft, non-tender, with normal bowel sounds. No distension or tympany. No guarding or rebound. No evidence of tenderness throughout. Back: No spinal tenderness. No costovertebral tenderness. Full range of motion. MS/ Extremity: Pulses equal, no cyanosis. Neurovascular intact. Full, normal range of motion. Neuro: Awake and alert, GCS 15, oriented to person, place, time, and situation. Cranial nerves II-XII grossly intact. Motor strength 5/5 in all extremities. Sensory grossly intact. Cerebellar exam normal. Normal gait. 10:27 Skin: abscess, that is small, of the suprapubic area, with induration, with surrounding cellulitis, that is mild. Vital Signs: 10:27 BP 123 / 82; Pulse 77; Resp 16; Temp 98.2; Pulse Ox 100% ; Weight 88.45 kg; Height 5 hb ft. (152.40 cm); Pain 4/10; 10:27 Body Mass Index 38.08 (88.45 kg, 152.40 cm) hb MDM: 10:23 Patient medically screened. kb 10:27 Data reviewed: vital signs, nurses notes. Data interpreted: Pulse oximetry: on room air kb is 100 %. Interpretation: normal. Counseling: I had a detailed discussion with the patient and/or guardian regarding: the historical points, exam findings, and any diagnostic results supporting the discharge/admit diagnosis, the need for outpatient follow up, a family practitioner, to return to the emergency department if symptoms worsen or persist or if there are any questions or concerns that arise at home. Administered Medications: 10:40 Drug: Bactrim (160 mg-800 mg (DS) 1 tablet Route: PO; bp 10:49 Follow up: Response: No adverse reaction bp Disposition: 03/04/19 10:29 Discharged to Home. Impression: Cutaneous abscess of abdominal wall. - Condition is Stable. - Discharge Instructions: Skin Abscess, [id number]. - Prescriptions for Bactrim DS 800- 160 mg Oral Tablet - take 1 tablet by ORAL route every 12 hours for 10 days; 20 tablet. - Medication Reconciliation Form, Thank You Letter, Antibiotic Education, Prescription Opioid Use, Work release form form. - Follow up: Emergency Department; When: As needed; Reason: Worsening of condition. Follow up: Private Physician; When: 2 - 3 days; Reason: Recheck today's complaints, Continuance of care, Re-evaluation by your physician. Addendum: 03/05/2019 20:51 Co-signature as Attending Physician, Vern Hurd MD I agree with the assessment and k dr plan of care. Signatures: Cynthia Miller, RENAL MEDICINE PHYSICIAN-C RENAL MEDICINE PHYSICIAN-Ckb Vern Hurd MD MD [facility], DEON RN Demetrius Silva, DEON RN bp Corrections: (The following items were deleted from the chart) 03/04 10:49 10:29 03/04/2019 10:29 Discharged to Home. Impression: Cutaneous abscess of abdominal bp wall. Condition is Stable. Forms are Medication Reconciliation Form, Thank You Letter, Antibiotic Education, Prescription Opioid Use. Follow up: Emergency Department; When: As needed; Reason: Worsening of condition. Follow up: Private Physician; When: 2 - 3 days; Reason: Recheck today's complaints, Continuance of care, Re-evaluation by your physician. kb
--- OUTSIDE RECORDS SUMMARY | 2019-03-04 10:47 | XMS REPORT ---
:1975 [facility] Address [address] Gardner [address] [place] [id number] Care Team Providers Name Role Phone Unavailable Unavailable Unavailable Problems This patient has no known problems. Allergies, Adverse Reactions, Alerts This patient has no known allergies or adverse reactions. Medications This patient has no known medications.
[2019-03-04] MEDS ORDERED: SMZ./TMP. 800/160 MG TABLET ONE (10:49)
[2019-03-04 10:57] VITALS: BP 123/82; TEMP 98.2; O2SAT 100
== END 2019-03-04 10:49 | disposition home or self-care (01) ==
LOC: ER 10:19
DX: L02.211 Cutaneous abscess of abdominal wall (principal)
CPT/HCPCS: 99283

== ENCOUNTER 2019-03-30 17:30 | Emergency (ER) | payer OTHER ==
--- OUTSIDE RECORDS SUMMARY | 2019-03-30 17:33 | XMS REPORT ---
:1975 Author Organization [facility] Address [address] [place] [address] Dr. Gardner [address] [place] [id number] Care Team Providers Name Role Phone Unavailable Unavailable Unavailable Problems This patient has no known problems. Allergies, Adverse Reactions, Alerts This patient has no known allergies or adverse reactions. Medications This patient has no known medications.
--- NOTE | 2019-03-30 18:22 | ER ---
Nurse's Notes [facility] Name: Darcy Aguilar Age: 43 yrs Sex: Female : 1975 Arrival Date: 03/30/2019 Time: 17:33 Bed 10 Private MD: Diagnosis: Zoster [herpes zoster] Presentation: 03/30 17:38 Presenting complaint: Patient states: i have blisters on my left arm. feels like its mg2 shingles. its been there for 5 days now. Transition of care: patient was not received from another setting of care. Onset of symptoms was March 2019. Risk Assessment: Do you want to hurt yourself or someone else? Patient reports no desire to harm self or others. Initial Sepsis Screen: Does the patient meet any 2 criteria? No. Patient's initial sepsis screen is negative. Does the patient have a suspected source of infection? No. Patient's initial sepsis screen is negative. Care prior to arrival: None. 17:38 Method Of Arrival: Ambulatory mg2 17:38 Acuity: CED 4 mg2 Triage Assessment: 18:36 General: Appears in no apparent distress. Behavior is calm, cooperative. 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 - Social history:: Smoking status: Patient/guardian denies using tobacco, Patient/guardian denies using alcohol, street drugs, IV drugs. - Ebola Screening: : No symptoms or risks identified at this time. Screenin:00 Abuse screen: Denies threats or abuse. Denies injuries from another. Nutritional iw screening: No deficits noted. Tuberculosis screening: No symptoms or risk factors identified. Fall Risk None identified. Assessment: 18:00 General: Appears in no apparent distress. Behavior is calm, cooperative. Pain: iw Complains of pain in left arm. Neuro: Level of Consciousness is awake, alert, obeys commands, Oriented to person, place, time, situation, Moves all extremities. Full function. Cardiovascular: Patient's skin is warm and dry. Respiratory: Respiratory effort is even, unlabored, Respiratory pattern is regular. Derm: Rash noted that is papular, vesicular, on left bicep. Musculoskeletal: Range of motion: intact in all extremities. Vital Signs: 17:40 BP 141 / 84; Pulse 63; Resp 18; Temp 98.7; Pulse Ox 99% on R/A; Weight 88.45 kg; Height mg2 5 ft. 1 in. (154.94 cm); 17:40 Body Mass Index 36.84 (88.45 kg, 154.94 cm) mg2 ED Course: 17:33 Patient arrived in ED. mr 17:40 Triage completed. mg2 17:40 Arm band placed on. mg2 17:47 Iilana Michaels, RN is Primary Nurse. iw 18:00 Patient has correct armband on for positive identification. iw 18:19 Sundar Raymundo PA is PHCP. jr8 18:19 Eugenio Naqvi MD is Attending Physician. jr8 18:36 No provider procedures requiring assistance completed. Patient did not have IV access iw during this emergency room visit. Administered Medications: No medications were administered Outcome: 18:21 Discharge ordered by . jr8 18:36 Discharged to home ambulatory. iw 18:36 Condition: good 18:36 Discharge instructions given to patient, Instructed on discharge instructions, follow up and referral plans. medication usage, Demonstrated understanding of instructions, follow-up care, medications. 18:36 Prescriptions given X 2. iw 18:37 Patient left the ED. iw Signatures: Lizy Bland mr Iliana Michaels, RN RN iw Sundar Raymundo PA PA jr8 Virgilio Quach RN RN mg2
--- NOTE | 2019-03-30 18:22 | EDPHYS ---
Physician Documentation [facility] Name: Darcy Aguilar Age: 43 yrs Sex: Female : 1975 Arrival Date: 03/30/2019 Time: 17:33 Bed 10 Private MD: ED Physician Eugenio Naqvi HPI: 03/30 18:19 This 43 yrs old Female presents to ER via Ambulatory with complaints of jr8 Blister on arm. 18:19 The patient's rash thought to be caused by an unknown cause. The rash is located on the jr8 left arm. The rash can be described as vesicular. Onset: The symptoms/episode began/occurred gradually, 5 day(s) ago, and became worse yesterday. Associated signs and symptoms: Pertinent positives: Pain. Severity of symptoms: At their worst the symptoms were mild in the emergency department the symptoms are unchanged. The patient has not experienced similar symptoms in the past. The patient has not recently seen a physician. 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 - Social history:: Smoking status: Patient/guardian denies using tobacco, Patient/guardian denies using alcohol, street drugs, IV drugs. - Ebola Screening: : No symptoms or risks identified at this time. ROS: 18:19 Eyes: Negative for injury, pain, redness, and discharge, ENT: Negative for injury, jr8 pain, and discharge, Neck: Negative for injury, pain, and swelling, Cardiovascular: Negative for chest pain, palpitations, and edema, Respiratory: Negative for shortness of breath, cough, wheezing, and pleuritic chest pain, Abdomen/GI: Negative for abdominal pain, nausea, vomiting, diarrhea, and constipation, Back: Negative for injury and pain, MS/Extremity: Negative for injury and deformity, Neuro: Negative for headache, weakness, numbness, tingling, and seizure. 18:19 Skin: Positive for rash, of the left arm. Exam: 18:19 Cardiovascular: Regular rate and rhythm with a normal S1 and S2. No gallops, murmurs, jr8 or rubs. Normal PMI, no JVD. No pulse deficits. Respiratory: Lungs have equal breath sounds bilaterally, clear to auscultation and percussion. No rales, rhonchi or wheezes noted. No increased work of breathing, no retractions or nasal flaring. Abdomen/GI: Soft, non-tender, with normal bowel sounds. No distension or tympany. No guarding or rebound. No evidence of tenderness throughout. Back: No spinal tenderness. No costovertebral tenderness. Full range of motion. MS/ Extremity: Pulses equal, no cyanosis. Neurovascular intact. Full, normal range of motion. Neuro: Awake and alert, GCS 15, oriented to person, place, time, and situation. Cranial nerves II-XII grossly intact. Motor strength 5/5 in all extremities. Sensory grossly intact. Cerebellar exam normal. Normal gait. 18:19 Skin: rash a mild rash is noted, rash can be described as vesicular, zoster, on the inner left arm at the biceps level . Vital Signs: 17:40 BP 141 / 84; Pulse 63; Resp 18; Temp 98.7; Pulse Ox 99% on R/A; Weight 88.45 kg; Height mg2 5 ft. 1 in. (154.94 cm); 17:40 Body Mass Index 36.84 (88.45 kg, 154.94 cm) mg2 MDM: 18:19 Patient medically screened. jr8 18:19 Data reviewed: vital signs, nurses notes, and as a result, I will discharge patient. jr8 Data interpreted: Pulse oximetry: on room air is 99 %. Interpretation: normal. Counseling: I had a detailed discussion with the patient and/or guardian regarding: the historical points, exam findings, and any diagnostic results supporting the discharge/admit diagnosis, the need for outpatient follow up, a family practitioner, to return to the emergency department if symptoms worsen or persist or if there are any questions or concerns that arise at home. Administered Medications: No medications were administered Disposition: 18:40 Co-signature as Attending Physician, Eugenio Naqvi MD. rn Disposition: 03/30/19 18:21 Discharged to Home. Impression: Zoster [herpes zoster]. - Condition is Stable. - Discharge Instructions: Shingles. - Prescriptions for Tylenol- Codeine #3 300-30 mg Oral Tablet - take 2 tablets by ORAL route every 6 hours As needed; 20 tablet. Acyclovir 800 mg Oral Tablet - take 1 tablet by ORAL route 5 times per day for 7 days; 35 tablet. - Medication Reconciliation Form, Thank You Letter, Antibiotic Education, Prescription Opioid Use form. - Follow up: Private Physician; When: As needed; Reason: Recheck today's complaints, Continuance of care, Re-evaluation by your physician. - Problem is new. - Symptoms have improved. Signatures: Iliana Michaels RN RN iw Eugenio Naqvi MD MD rn Roszak, Josh, PA PA jr8 Virgilio Quach RN RN mg2 Corrections: (The following items were deleted from the chart) 18:37 18:21 03/30/2019 18:21 Discharged to Home. Impression: Zoster [herpes zoster]. iw Condition is Stable. Forms are Medication Reconciliation Form, Thank You Letter, Antibiotic Education, Prescription Opioid Use. Follow up: Private Physician; When: As needed; Reason: Recheck today's complaints, Continuance of care, Re-evaluation by your physician. Problem is new. Symptoms have improved. jr8
[2019-03-30 19:53] VITALS: BP 141/84; TEMP 98.7; O2SAT 99
== END 2019-03-30 18:37 | disposition home or self-care (01) ==
LOC: ER 17:30
DX: B02.9 Zoster without complications (principal)
CPT/HCPCS: 99282